=== PATIENT | male | born 1970 ===

== ENCOUNTER 2022-05-09 10:45 | Inpatient (IN) | payer OTHER ==
[~2022-05-09] VITALS: Ht 170.2 cm; Wt 117.9 kg
[2022-05-09] MEDS ORDERED: ATACAND HCT 161 EACH PO (13:44)
[2022-05-09] MEDS ORDERED: TOPROL XL25 M1 PO (13:44)
[2022-05-09] MEDS ORDERED: [UNRECOGNIZED DRUG - OTHER] PO (13:45)
[2022-05-09] MEDS ORDERED: PRAVASTATIN SOD10 MG PO (13:45)
[2022-05-09] MEDS ORDERED: GLIPIZIDE XL5 MG PO (13:45)
[2022-05-19] MEDS ORDERED: LEVSIN/SL0.125 MG SL (15:53)
[2022-05-19] MEDS ORDERED: INTESTINEX680 M1 PO (15:53)
[2022-05-19] MEDS ORDERED: PERCOCET 5-3251 EACH PO (15:53)
== END 2022-05-19 21:53 | disposition home or self-care (01) | DRG 331 ==
LOC: EDUNIT# 10:45 → O/R 05-16 09:38 → SURG 05-16 09:38
PROVIDERS: ADMIT Surgery; ATTEND Surgery
PROC: 07BB4ZZ Excision of Mesenteric Lymphatic, Percutaneous Endoscopic Approach (ICD-10-PCS; 2022-05-16)
PROC: 0DTF4ZZ Resection of Right Large Intestine, Percutaneous Endoscopic Approach (ICD-10-PCS; principal; 2022-05-16 10:00)
DX: D12.3 Benign neoplasm of transverse colon (principal); Z20.822 Contact with and (suspected) exposure to COVID-19

== ENCOUNTER 2022-05-13 07:12 | Day surgery (SDC) | payer OTHER ==
[~2022-05-13 07:12] MED LIST: ATACAND HCT 161 EACH PO; GLIPIZIDE XL5 MG PO; PRAVASTATIN SOD10 MG PO; TOPROL XL25 M1 PO; [UNRECOGNIZED DRUG - OTHER] PO
== END 2022-05-13 12:40 | disposition home or self-care (01) ==
LOC: AMB-ENDOS 07:12
PROVIDERS: ATTEND Surgery
DX: D12.2 Benign neoplasm of ascending colon (principal); E11.9 Type 2 diabetes mellitus without complications; I10 Essential (primary) hypertension